=== PATIENT | male | born 1970 | race Caucasian/White ===

== ENCOUNTER 2018-04-30 18:00 | Outpatient (CLI) | payer OTHER | END 2018-04-30 18:01 | disposition home or self-care (01) | LOC: SLEEPLAB 18:00 | PROVIDERS: ATTEND Family Medicine | DX: G47.33 Obstructive sleep apnea (adult) (pediatric) (principal); R06.83 Snoring; G47.00 Insomnia, unspecified; F41.9 Anxiety disorder, unspecified; I10 Essential (primary) hypertension; Z68.27 Body mass index [BMI] 27.0-27.9, adult | CPT/HCPCS: 95806 ==

== ENCOUNTER 2018-11-15 13:05 | Outpatient (CLI) | payer OTHER ==
--- NOTE | 2018-11-15 13:45 | ULT ---
Soft tissue sonogram right neck HISTORY: Pain and swelling right neck. FINDINGS: Sonographic evaluation the soft tissues in the area of palpable concern at the right medial supraclavicular level shows a well-circumscribed oval hypoechoic structure with an eccentric hyperechoic hilum. The lymph node is 0.5 cm greatest diameter. Smaller adjacent lymph nodes. Plan evaluated for comparison, similar appearing left ventricular present at the left supraclavicular level. IMPRESSION: Nonenlarged right supraclavicular lymph nodes in region of palpable concern. No aggressiv e masses or fluid collections are apparent.
== END 2018-11-15 13:06 | disposition home or self-care (01) ==
LOC: SCSULT 13:05
PROVIDERS: ATTEND Otolaryngology Plastic Surgery within the Head & Neck
DX: R22.1 Localized swelling, mass and lump, neck (principal); R59.0 Localized enlarged lymph nodes
CPT/HCPCS: 76536

== ENCOUNTER 2019-01-03 16:14 | Outpatient (CLI) | payer OTHER ==
--- NOTE | 2019-01-03 17:53 | MRI ---
CERVICAL SPINE MRI WITHOUT CONTRAST: 01/03/19 HISTORY: Skin paresthesia. COMPARISON: None. CORRELATION: Soft tissue neck CT with contrast, 11/27/18. FINDINGS: Appropriate T1 marrow signal intensity of the cervical vertebrae. Cervical spine vertebral body heigh t is maintained. No fracture. Straightening of the normal cervical lordosis may be due to patient pos itioning or muscle spasm. No significant STIR hyperintensity to suggest vertebral body edema or ligam entous injury. There is type I Modic change along the left aspect of the C5-C6 disc space. The visualized brain parenchyma, cervicomedullary junction, cervical cord, and the upper thoracic cor d have a normal size and signal intensity. Coronal images demonstrate a gelcap in the right supraclavicular region. There is only evidence of fat signal intensity in this region. No evidence of a mass or lymph adenopathy. Please refer to separate postcontrast soft tissue neck CT report for further detail. C2-C3: No significant central canal stenosis. Neural foramina are patent. C3-C4: No significant central canal stenosis. Neural foramina are patent. C4-C5: Minimal generalized disc bulge without significant central canal stenosis. Minimal right lisa inal narrowing due to uncovertebral hypertrophy. Left neural foramen is patent. C5-C6: Broad based disc osteophyte complex with a central component that causes mass effect upon the midline thecal sac and mildly deforms the midline cervical cord. No cord hyperintensity. Mild central canal stenosis. Severe right and moderate left foraminal narrowing due to uncovertebral hypertrophy. C6-C7: There is a central/left paracentral disc protrusion. Mild central canal stenosis. No significa nt mass effect upon the cervical cord. Mild right foraminal narrowing due to uncovertebral hypertroph y. Left neural foramen is patent. C7-T1: Small right paracentral disc protrusion without significant central canal stenosis. Mild righ t foraminal narrowing due to uncovertebral hypertrophy. A left neural foramen is patent. IMPRESSION: 1. Degenerative disc disease at C5-C6 with mild to moderate central canal stenosis. Moderate rig ht and mild left foraminal narrowing at C5-C6. 2. No abnormal mass or lymphadenopathy at the region of the marker noted in the right supraclavi cular region. POS: PPP
== END 2019-01-03 16:15 | disposition home or self-care (01) ==
LOC: SCSMRI 16:14
PROVIDERS: ATTEND Psychiatry & Neurology Neurology
DX: R20.2 Paresthesia of skin (principal); M50.322 Other cervical disc degeneration at C5-C6 level; M48.02 Spinal stenosis, cervical region
CPT/HCPCS: 72141

== ENCOUNTER 2019-06-21 11:55 | Outpatient (CLI) | payer OTHER ==
--- NOTE | 2019-06-21 12:36 | ULT ---
CAROTID ARTERIAL DOPPLER ULTRASOUND: 06/21/2019 COMPARISON: None. HISTORY: Increasing dizziness and tingling. TECHNIQUE: Multiplanar grayscale sonographic imaging of the arterial structures of the neck obtained with color flow and spectral analysis. FINDINGS: No visible atherosclerotic plaque is noted on this examination. There is antegrade blood flow with no rmal arterial waveforms documented within the carotid and vertebral system bilaterally. VESSEL PSV (cm/sec) Right CCA 103 Right ICA 92 Right ECA 85 Left CCA 122 Left ICA 76 Left ECA 77 ICA/CCA ratio is 0.9 on the right and 0.6 on the left. IMPRESSION: No hemodynamically significant stenosis on the basis of sonographic velocity criteria. Transcribed Date/Time: 06/21/2019 12:49 PM
== END 2019-06-21 11:56 | disposition home or self-care (01) ==
LOC: SCSULT 11:55
PROVIDERS: ATTEND Psychiatry & Neurology Neurology
DX: G56.03 Carpal tunnel syndrome, bilateral upper limbs (principal)
CPT/HCPCS: 93880